=== PATIENT | female | born 1985 | race Two or more races ===

== ENCOUNTER 2024-07-27 14:05 | Observation (INO) | payer MEDICAID ==
[2024-07-27] MEDS ORDERED: PREN-96 PO (14:55)
[2024-07-27] MEDS ORDERED: METF-370 PO (14:56)
== END 2024-07-27 15:54 | disposition home or self-care (01) ==
LOC: LDRP 14:05 → UNDOADMOB 14:05 → LDRP 14:24
PROVIDERS: ADMIT Obstetrics & Gynecology; ATTEND Obstetrics & Gynecology
DX: O24.419 Gestational diabetes mellitus in pregnancy, unspecified control (principal); Z3A.33 33 weeks gestation of pregnancy
CPT/HCPCS: 59025; 76818; 81002; 82948; 82962; 94760; G0378

== ENCOUNTER 2024-07-30 10:46 | Observation (INO) | payer MEDICAID ==
[~2024-07-30 10:46] MED LIST: METF-370 PO; PREN-96 PO
== END 2024-07-30 13:08 | disposition home or self-care (01) ==
LOC: LDRP 10:46
PROVIDERS: ADMIT Obstetrics & Gynecology; ATTEND Obstetrics & Gynecology
DX: O24.419 Gestational diabetes mellitus in pregnancy, unspecified control (principal); Z3A.33 33 weeks gestation of pregnancy
CPT/HCPCS: 59025; 76818; 81002; 82948; 82962; 94760; G0378

== ENCOUNTER 2024-08-03 11:55 | Observation (INO) | payer MEDICAID ==
--- NOTE | 2024-08-03 12:42 | DVH ---
BIOPHYSICAL PROFILE HISTORY: GDMA2 Comparison Study: 07/30/2024 TECHNIQUE: Multiple real-time grayscale sonographic images through the gravid uterus of the fetus wi th duplex Doppler color flow and M-mode spectral analysis FINDINGS: BIOPHYSICAL PROFILE: breathing score: 2 movement score: 2 tone score: 2 Quantitative RUTH ANN score: 2 (RUTH ANN: 14.4 Cm.) Total score: 8 The cervix is not visualized Single live fetus in cephalic presentation. heart rate 149 beats per minute. Posterior placenta without previa or abruption IMPRESSION: Biophysical profile score: 8
--- NOTE | 2024-08-03 19:56 | DVHDS2 ---
Physician Discharge Progress N Final Diagnosis: testing for GDM, A2 Operations or Procedures: Operations or Procedures 39yo IUP@34.1wks, +FM, denies UCs/VB VSS UA wnl NST reactive BPP wnl FKC/PTL precautions reviewed Condition on Discharge: Stable Disposition: Home with Health Services Discharge Instructions: Diet: Consistent carbohydrate Activity: No Restrictions, As Tolerated Medications: see med list Follow Up Care: Specialist: f/u in 3 days Discharge Statement: "Patient was advised to return to the ER or call 911 if any headaches, dizziness, shortness of breath, chest pain, abdominal pain, bleeding, fevers, or worsening of medical condition. Patient was counseled about treatment plan, medications, possible side effects, patientverbalized understanding. All questions were answered to the best of my ability. This discharge took greater then 30 minutes in planning, reviewing documentation, counseling the patient, and discussing with other team members." KURT KEENAN CNM Aug 03, 2024 19:56
== END 2024-08-03 13:27 | disposition home or self-care (01) ==
LOC: LDRP 11:55
PROVIDERS: ADMIT Obstetrics & Gynecology; ATTEND Obstetrics & Gynecology
DX: O24.419 Gestational diabetes mellitus in pregnancy, unspecified control (principal); Z3A.34 34 weeks gestation of pregnancy
CPT/HCPCS: 76818; 82962; G0378; 59025; 81002; 82948; 94760

== ENCOUNTER 2024-08-06 08:57 | Observation (INO) | payer MEDICAID ==
--- NOTE | 2024-08-06 09:50 | DVH ---
BIOPHYSICAL PROFILE HISTORY: GDMA2 Comparison Study: 08/03/2024 TECHNIQUE: Multiple real-time grayscale sonographic images through the gravid uterus of the fetus wi th duplex Doppler color flow and M-mode spectral analysis FINDINGS: BIOPHYSICAL PROFILE: breathing score: 2 movement score: 2 tone score: 2 Quantitative RUTH ANN score: 2 (RUTH ANN: 11.7 Cm.) Total score: 8 The cervix is not visualized Single live fetus in cephalic presentation. heart rate 140 beats per minute. Posterior placenta without previa or abruption IMPRESSION: Biophysical profile score: 8
--- NOTE | 2024-08-06 16:56 | DVHDS2 ---
Physician Discharge Progress N Final Diagnosis: GDMA2 Operations or Procedures: Operations or Procedures NST/BPP/RUTH ANN Accucheck Commentary: Commentary Reassuring status Condition on Discharge: Stable Disposition: Home Discharge Instructions: Diet: Consistent carbohydrate Activity: No Restrictions, As Tolerated Follow Up/Referral: as scheduled 2x/week for NST/BPP Medications: N/A Follow Up Care: Discharge Statement: "Patient was advised to return to the ER or call 911 if any headaches, dizziness, shortness of breath, chest pain, abdominal pain, bleeding, fevers, or worsening of medical condition. Patient was counseled about treatment plan, medications, possible side effects, patientverbalized understanding. All questions were answered to the best of my ability. This discharge took greater then 30 minutes in planning, reviewing documen tation, counseling the patient, and discussing with other team members." ROSY GONZALEZ DO Aug 06, 2024 16:56
== END 2024-08-06 11:30 | disposition home or self-care (01) ==
LOC: LDRP 08:57
PROVIDERS: ADMIT Obstetrics & Gynecology; ATTEND Obstetrics & Gynecology
DX: O24.419 Gestational diabetes mellitus in pregnancy, unspecified control (principal); Z3A.34 34 weeks gestation of pregnancy
CPT/HCPCS: 59025; 76818; 81002; 82948; 82962; G0378

== ENCOUNTER 2024-08-09 11:32 | Observation (INO) | payer MEDICAID ==
--- NOTE | 2024-08-10 09:48 | DVH ---
BIOPHYSICAL PROFILE HISTORY: GDMA2 TECHNIQUE: Multiple transabdominal real-time grayscale sonographic images through the gravid uterus of the fetus with duplex Doppler color flow and M-mode spectral analysis FINDINGS: BIOPHYSICAL PROFILE: breathing score: 2 movement score: 2 tone score: 2 Quantitative RUTH ANN score: 2 (RUTH ANN: 13.9 Cm.) Total score: 8 The cervix not well visualized. Single live fetus in vertex presentation. heart rate 150 beats per minute. Posterior placenta without previa or abruption IMPRESSION: Biophysical profile score: 8/8
--- NOTE | 2024-08-10 20:24 | DVHDS2 ---
Physician Discharge Progress N Final Diagnosis: testing for GDM, A2 Operations or Procedures: Operations or Procedures 39yo IUP@35.1wks VSS UA wnl NST reactive (verified by 2 RNs) BPP WNL FKC/PTL precautions reviewed Condition on Discharge: Stable Disposition: Home Discharge Instructions: Diet: Consistent carbohydrate Activity: No Restrictions, As Tolerated Medications: see med list Follow Up Care: Specialist: f/u in 3 days Discharge Statement: "Patient was advised to return to the ER or call 911 if any headaches, dizziness, shortness of breath, chest pain, abdominal pain, bleeding, fevers, or worsening of medical condition. Patient was counseled about treatment plan, medications, possible side effects, patientverbalized understanding. All questions were answered to the best of my ability. This discharge took greater then 30 minutes in planning, reviewing d ocumentation, counseling the patient, and discussing with other team members." KURT KEENAN CNM Aug 10, 2024 20:23
== END 2024-08-10 10:53 | disposition home or self-care (01) ==
LOC: LDRP 08-10 09:03
PROVIDERS: ADMIT Obstetrics & Gynecology; ATTEND Obstetrics & Gynecology
DX: O09.523 Supervision of elderly multigravida, third trimester (principal); O24.419 Gestational diabetes mellitus in pregnancy, unspecified control; Z79.899 Other long term (current) drug therapy; Z98.890 Other specified postprocedural states; Z3A.35 35 weeks gestation of pregnancy
CPT/HCPCS: 59025; 76818; 81002; 82948; 82962; G0378

== ENCOUNTER 2024-08-13 10:55 | Observation (INO) | payer MEDICAID ==
--- NOTE | 2024-08-13 12:02 | DVH ---
Procedure: US BIOPHYSICAL PROFILE 08/13/2024 11:34 AM Indication:GDMA2. Comparison: US BIOPHYSICAL PROFILE on DOS: 08/10/24, US BIOPHYSICAL PROFILE on DOS: 08/06/24, US BIOPH YSICAL PROFILE on DOS: 08/03/24 Technique: Sonogram of gravid uterus utilizing grayscale and color techniques. FINDINGS: Single living intrauterine gestation. Presentation: Cephalic Placenta: Posterior heart rate: 137 bpm RUTH ANN: 11.3 cm Maternal cervix: Not visualized Biophysical Profile: breathing score: 2 movement score: 2 tone: 2 Quantitative RUTH ANN score: 2 Total score: 8/8 IMPRESSION: 1. Single living as above. 2. Biophysical profile score: 8/8.
--- NOTE | 2024-08-13 17:54 | DVHDS2 ---
Physician Discharge Progress N Final Diagnosis: GDMA2 Operations or Procedures: Operations or Procedures NST/BPP/RUTH ANN Accucheck ALL WNL Condition on Discharge: Stable Disposition: Home Discharge Instructions: Diet: Consistent carbohydrate Activity: No Restrictions, As Tolerated Follow Up/Referral: as scheduled Medications: N/A Follow Up Care: Discharge Statement: "Patient was advised to return to the ER or call 911 if any headaches, dizziness, shortness of breath, chest pain, abdominal pain, bleeding, fevers, or worsening of medical condition. Patient was counseled about treatment plan, medications, possible side effects, patientverbalized understanding. All questions were answered to the best of my ability. This discharge took greater then 30 minutes in planning, reviewing documentation, counseling the patient, and discussing with other team members." ROSY GONZALEZ DO Aug 13, 2024 17:54
== END 2024-08-13 12:22 | disposition home or self-care (01) ==
LOC: LDRP 10:55
PROVIDERS: ADMIT Obstetrics & Gynecology; ATTEND Obstetrics & Gynecology
DX: O24.419 Gestational diabetes mellitus in pregnancy, unspecified control (principal); Z3A.35 35 weeks gestation of pregnancy
CPT/HCPCS: 59025; 76818; 81002; 82948; 82962; 94760; G0378

== ENCOUNTER 2024-08-17 13:37 | Observation (INO) | payer MEDICAID ==
--- NOTE | 2024-08-17 14:19 | DVH ---
BIOPHYSICAL PROFILE HISTORY: GDMA2 TECHNIQUE: Multiple transabdominal real-time grayscale sonographic images through the gravid uterus of the fetus with duplex Doppler color flow and M-mode spectral analysis FINDINGS: BIOPHYSICAL PROFILE: breathing score: 2 movement score: 2 tone score: 2 Quantitative RUTH ANN score: 2 (RUTH ANN: 14.3 Cm.) Total score: 8 The cervix not well visualized. Single live fetus in vertex presentation. heart rate 154 beats per minute. Posterior placenta without previa or abruption IMPRESSION: Biophysical profile score: 8
--- NOTE | 2024-08-17 19:16 | DVHDS2 ---
Physician Discharge Progress N Final Diagnosis: testing for GDM, A2 Operations or Procedures: Operations or Procedures 39yo IUP@36.1wks VSS UA wnl NST reactive (verified by 2 RNs) BPP wnl FKC/PTL/PreE precautions reviewed. Condition on Discharge: Stable Disposition: Home Discharge Instructions: Diet: Consistent carbohydrate Activity: No Restrictions, As Tolerated Medications: see med list Follow Up Care: Specialist: f/u in 3 days Discharge Statement: "Patient was advised to return to the ER or call 911 if any headaches, dizziness, shortness of breath, chest pain, abdominal pain, bleeding, fevers, or worsening of medical condition. Patient was counseled about treatment plan, medications, possible side effects, patientverbalized understanding. All questions were answered to the best of my ability. This discharge took greater then 30 minutes in planning, reviewing documentation, counseling the patient, and discussing with other team members." KURT KEENAN CNM Aug 17, 2024 19:16
== END 2024-08-17 15:01 | disposition home or self-care (01) ==
LOC: LDRP 13:37
PROVIDERS: ADMIT Obstetrics & Gynecology; ATTEND Obstetrics & Gynecology
DX: O09.523 Supervision of elderly multigravida, third trimester (principal); O24.419 Gestational diabetes mellitus in pregnancy, unspecified control; Z3A.36 36 weeks gestation of pregnancy; Z79.899 Other long term (current) drug therapy; Z98.890 Other specified postprocedural states
CPT/HCPCS: 59025; 76818; 81002; 82962; 94760; G0378

== ENCOUNTER 2024-08-20 10:52 | Observation (INO) | payer MEDICAID ==
--- NOTE | 2024-08-20 11:47 | DVH ---
BIOPHYSICAL PROFILE HISTORY: GDMA2 Comparison Study: None TECHNIQUE: Multiple real-time grayscale sonographic images through the gravid uterus of the fetus wi th duplex Doppler color flow and M-mode spectral analysis FINDINGS: BIOPHYSICAL PROFILE: breathing score: 2 movement score: 2 tone score: 2 Quantitative RUTH ANN score: 2 (RUTH ANN: 13.4 Cm.) Total score: 8 The cervix is not visualized Single live fetus in cephalic presentation. heart rate 167 beats per minute. Posterior placenta without previa or abruption IMPRESSION: Biophysical profile score: 8
--- NOTE | 2024-08-20 17:08 | DVHDS2 ---
Physician Discharge Progress N Final Diagnosis: GDM Operations or Procedures: Operations or Procedures NST/BPP/RUTH ANN Accucheck ALL the above WNL Condition on Discharge: Stable Disposition: Home Discharge Instructions: Diet: Regular Activity: No Restrictions, As Tolerated Follow Up/Referral: As scheduled Medications: N/A Follow Up Care: Discharge Statement: "Patient was advised to return to the ER or call 911 if any headaches, dizziness, shortness of breath, chest pain, abdominal pain, bleeding, fevers, or worsening of medical condition. Patient was counseled about treatment plan, medications, possible side effects, patientverbalized understanding. All questions were answered to the best of my ability. This discharge took greater then 30 minutes in planning, reviewing documentation, counseling the patient, and discussing with other team members." ROSY GONZALEZ DO Aug 20, 2024 17:08
== END 2024-08-20 12:45 | disposition home or self-care (01) ==
LOC: LDRP 10:52 → UNDOADMOB 10:52 → LDRP 11:05 → UNDODISOB 12:45
PROVIDERS: ADMIT Obstetrics & Gynecology; ATTEND Obstetrics & Gynecology
DX: O24.419 Gestational diabetes mellitus in pregnancy, unspecified control (principal); Z3A.36 36 weeks gestation of pregnancy
CPT/HCPCS: 59025; 76818; 81002; 82948; 94760; G0378

== ENCOUNTER 2024-08-24 12:59 | Observation (INO) | payer MEDICAID ==
--- NOTE | 2024-08-24 15:49 | DVH ---
BIOPHYSICAL PROFILE HISTORY: GDMA2 TECHNIQUE: Multiple transabdominal real-time grayscale sonographic images through the gravid uterus of the fetus with duplex Doppler color flow and M-mode spectral analysis FINDINGS: BIOPHYSICAL PROFILE: breathing score: 2 movement score: 2 tone score: 2 Quantitative RUTH ANN score: 2 (RUTH ANN: 15.4 Cm.) Total score: 8/8 Single live fetus in cephalic presentation. heart rate 140 beats per minute. Posterior placenta without previa or abruption IMPRESSION: 1. Biophysical profile score: 8/8 HS:Y
--- NOTE | 2024-08-24 22:04 | DVHDS2 ---
Physician Discharge Progress N Final Diagnosis: testing for GDM, A2 Operations or Procedures: Operations or Procedures 39yo IUP@37.1wks VSS UA wnl NST reactive (verified by 2 RNs) BPP wnl FKC/labor precautions reviewed. Condition on Discharge: Stable Disposition: Home Discharge Instructions: Diet: Consistent carbohydrate Activity: No Restrictions, As Tolerated Medications: see med list Follow Up Care: Specialist: f/u twice weekly Discharge Statement: "Patient was advised to return to the ER or call 911 if any headaches, dizziness, shortness of breath, chest pain, abdominal pain, bleeding, fevers, or worsening of medical condition. Patient was counseled about treatment plan, medications, possible side effects, patientverbalized understanding. All questions were answered to the best of my ability. This discharge took greater then 30 minutes in planning, reviewing documentation, counseling the patient, and discussing with other team members." KURT KEENAN CNM Aug 24, 2024 22:04
== END 2024-08-24 16:30 | disposition home or self-care (01) ==
LOC: LDRP 15:00
PROVIDERS: ADMIT Obstetrics & Gynecology; ATTEND Obstetrics & Gynecology
CPT/HCPCS: 59025 ×2; 76818 ×2; 81002 ×2; 82948 ×2; 82962 ×2; 94760 ×2; G0378

== ENCOUNTER 2024-08-28 04:24 | Observation (INO) | payer MEDICAID ==
--- NOTE | 2024-08-28 10:41 | DVH ---
CLINICAL HISTORY: Gestational diabetes. COMPARISON: US BIOPHYSICAL PROFILE on DOS: 08/24/24, US BIOPHYSICAL PROFILE on DOS: 08/20/24, US BIOP HYSICAL PROFILE on DOS: 08/17/24 TECHNIQUE: biophysical profile was performed. Transabdominal sonographic images of the fetus we re obtained. FINDINGS: The fetus is in cephalic position. heart rate measures 161 BPM. Amniotic fluid index measures 14.6 cm. The placenta is posterior in position. BPP profile is an overall score of 8/8, with 2/2 points for breathing, with at least one episode of breathing over a 30 second duration during a 30 minute observation, 2/2 points for m ovements, with 3 or more discrete body or limb movements, 2/2 points for tone, with one or more episodes of extremity extension with return to flexion, or opening and closing of hand, and 2/ 2 points for amniotic fluid, with at least 1 pocket of amniotic fluid that measures 2 cm in 2 perpend icular planes. IMPRESSION: BPP score of 8/8.
--- NOTE | 2024-08-28 18:59 | DVHDS2 ---
Physician Discharge Progress N Final Diagnosis: gdm,ama Operations or Procedures: Operations or Procedures nst,sono Condition on Discharge: Good Disposition: Home Discharge Instructions: Diet: Consistent carbohydrate Activity: No Restrictions, As Tolerated Medications: na Follow Up Care: Specialist: 2d Discharge Statement: "Patient was advised to return to the ER or call 911 if any headaches, dizziness, shortness of breath, chest pain, abdominal pain, bleeding, fevers, or worsening of medical condition. Patient was counseled about treatment plan, medications, possible side effects, patientverbalized understanding. All questions were answered to the best of my ability. This discharge took greater then 30 minutes in planning, reviewing documentation , counseling the patient, and discussing with other team members." MURIEL LILLY DO Aug 28, 2024 18:59
== END 2024-08-28 10:58 | disposition home or self-care (01) ==
LOC: LDRP 09:54
PROVIDERS: ADMIT Obstetrics & Gynecology; ATTEND Obstetrics & Gynecology
DX: O09.513 Supervision of elderly primigravida, third trimester (principal); O24.419 Gestational diabetes mellitus in pregnancy, unspecified control; Z3A.37 37 weeks gestation of pregnancy; Z79.899 Other long term (current) drug therapy; Z98.890 Other specified postprocedural states
CPT/HCPCS: 59025; 76818; 81002; 82948; 82962; G0378

== ENCOUNTER 2024-09-01 10:52 | Observation (INO) | payer MEDICAID ==
--- NOTE | 2024-09-01 11:48 | DVH ---
CLINICAL HISTORY: Gestational diabetes. COMPARISON: US BIOPHYSICAL PROFILE on DOS: 08/28/24, US BIOPHYSICAL PROFILE on DOS: 08/24/24, US BIOP HYSICAL PROFILE on DOS: 08/20/24 TECHNIQUE: biophysical profile was performed. Transabdominal sonographic images of the fetus we re obtained. FINDINGS: The fetus is in cephalic position. heart rate measures 144 BPM. Amniotic fluid index measures 16.2 cm. The placenta is posterior in position. BPP profile is an overall score of 8/8, with 2/2 points for breathing, with at least one episode of breathing over a 30 second duration during a 30 minute observation, 2/2 points for m ovements, with 3 or more discrete body or limb movements, 2/2 points for tone, with one or more episodes of extremity extension with return to flexion, or opening and closing of hand, and 2/ 2 points for amniotic fluid, with at least 1 pocket of amniotic fluid that measures 2 cm in 2 perpend icular planes. IMPRESSION: BPP score of 8/8.
--- NOTE | 2024-09-01 12:34 | DVHDS2 ---
Physician Discharge Progress N Final Diagnosis: gdm Operations or Procedures: Operations or Procedures nst,sono Condition on Discharge: Good Disposition: Home Discharge Instructions: Diet: Consistent carbohydrate Activity: No Restrictions, As Tolerated Medications: na Follow Up Care: Specialist: 4d for induction Discharge Statement: "Patient was advised to return to the ER or call 911 if any headaches, dizziness, shortness of breath, chest pain, abdominal pain, bleeding, fevers, or worsening of medical condition. Patient was counseled about treatment plan, medications, possible side effects, patientverbalized understanding. All questions were answered to the best of my ability. This discharge took greater then 30 minutes in planning, reviewing do cumentation, counseling the patient, and discussing with other team members." MURIEL LILLY DO Sep 01, 2024 12:34
== END 2024-09-01 13:07 | disposition home or self-care (01) ==
LOC: UNDOADMOB 10:52 → LDRP 10:52 → UNDODISOB 13:07
PROVIDERS: ADMIT Obstetrics & Gynecology; ATTEND Obstetrics & Gynecology
DX: O24.419 Gestational diabetes mellitus in pregnancy, unspecified control (principal); Z79.899 Other long term (current) drug therapy; Z98.890 Other specified postprocedural states; Z3A.38 38 weeks gestation of pregnancy
CPT/HCPCS: 59025; 76818; 81002; 82948; 82962; 94760; G0378

== ENCOUNTER 2024-09-05 05:21 | Inpatient (IN) | payer MEDICAID ==
[~2024-09-05] VITALS: Ht 162.6 cm; Wt 104.3 kg
[2024-09-05] MEDS ORDERED: BUTORPHANOL TARTRATE 2 MG/1 ML VIAL IV PRN ×2 (07:00)
[2024-09-05] MEDS ORDERED: LIDOCAINE 2%HCL (LOCAL ANESTH.) INJ 20ML MDV IJ PRN (07:00)
[2024-09-05] MEDS: miSOPROStol 50 MCG per PRE-CUT 1/2 TAB PO PRN (07:31)
[2024-09-05] MEDS: LACTATED RINGER'S 1,000 ML IV SCH (07:36)
[2024-09-05 07:42] LABS: Basophils # (auto) 0 10 ^3/uL (0-0.2); Basophils % (auto) 0.5 % (0.0-2.0); Eosinophils # (auto) 0.1 10 ^3/uL (0-0.8); Eosinophils % (auto) 1.3 % (0.0-7.0); Lymphocytes # (auto) 1.6 10 ^3/uL (0.4-5.4); Lymphocytes % (auto) 19.2 % (10.0-50.0); Mean Corpuscular Hemoglobin 28.3 pg (28.0-32.0); Mean Corpuscular Hgb Conc. 34.3 g/dL (32.0-36.0); Mean Corpuscular Volume 82.6 fL (80.0-100.0); Monocytes # (auto) 0.7 10 ^3/uL (0-1.3); Monocytes % (auto) 7.8 % (0.0-12.0); Neutrophils # (auto) 5.9 10 ^3/uL (1.6-8.6); Neutrophils % (auto) 71.2 % (37.0-80.0); Platelet Count (auto) 249 10^3/uL (140-450); Red Blood Cells 4.24 10^6/uL (4.0-5.20); White Blood Cell 8.3 10^3/uL (4.4-10.8)
--- NOTE | 2024-09-05 07:51 | DVHHP2 ---
OB CC & HPI Date Date of Admission: Sep 05, 2024 Patient Identification: : 6 Para: 3 EDC: Sep 13, 2024 EGA: 38wks Chief Complaints: Reason for admission: induction of labor Indication for : other (gdm) Admission Nurse Assessment Rev: No History of Present Complaints pt is admitted for io;l due to gdma2,no rom or vag bleeding Past Medical History Cardiac: No pertinent Hx Pulmonary: No pertinent Hx Central Nervous System: No pertinent Hx GI: No pertinent Hx Hemotology/Oncology: No pertinent Hx Hepatobiliary: No pertinent Hx Psychiatric: No pertinent Hx Musculoskeletal: No pertinent Hx Rheumotologic: No pertinent Hx Infectious Disease: No peritnent Hx ENT: No pertinent Hx Renal/: No pertinent Hx Endocrine: No pertinent Hx Dermatology: No pertinent Hx Past Surgical History: No pertinent Hx OB History OB History Care: Good Care Ultrasounds: Normal mid trimester US Obstetrical Complications: Gestational Diabetes Medical Complications: None Allergies: Coded Allergies: NO KNOWN ALLERGIES (Unverified , 09/05/24) Home Meds Reported Medications Metformin Hydrochloride (Metformin Hcl) 500 Mg Tab, 1 TAB PO HS, #60 TAB 3 Refills 07/27/24 Vit W/ Ferrous Fumara ( One Daily) Daily Tab, 1 TAB PO DAILY, #90 TAB 3 Refills 07/27/24 Current Medications Current Medications Medications (Trade) Dose Ordered Sig/Cecy Route PRN Reason Start Time Stop Time Status Last Admin Lactated Ringer's 1,000 ml @ 125 mls/hr Q8H IV 09/05/24 07:00 09/05/24 07:36 Witrenate Gerda (Tucks) 1 pad PRN PRN TOP PERINEAL AREA DISCOMFORT 09/05/24 07:00 Sodium Lauryl Sulfate (Phisoderm) 240 ml PRN PRN TOP PERINEAL AREA DISCOMFORT 09/05/24 07:00 Benzocaine (Dermoplast) 1 applic PRN PRN TOP PERINEAL AREA DISCOMFORT 09/05/24 07:00 Butorphanol Tartrate (Stadol Injection) 1 mg Q4HPRN PRN IV MODERATE PAIN (4-6 PAIN SCALE) 09/05/24 07:00 Butorphanol Tartrate (Stadol Injection) 2 mg Q4HPRN PRN IV SEVERE PAIN (7-10 PAIN SCALE) 09/05/24 07:00 Misoprostol (Cytotec) 50 mcg Q4HPRN PRN PO CERVICAL RIPENING 09/05/24 07:00 09/05/24 07:31 Lidocaine HCl (Xylocaine) 20 ml ONCE PRN IJ PERINEAL AREA DISCOMFORT 09/05/24 07:00 Family & Social History Family/Social History Blood Type: Unknown Rubella: unknown RPR/VDRL: Negative GBS Status: Negative HBsAG: Negative Review of Systems Constitutional: No symptom reported Ears, Nose, & Throat: No symptom reported Eyes: No symptom reported Pulmonary/Respiratory: No symptom reported Cardiovascular: No symptom reported Gastrointestinal: No symptom reported Genitourinary: No symptom reported Musculoskeletal: No symptom reported Skin: No symptom reported Psychiatric: No symptom reported Endocrine: No symptom reported Hemotologic/Lymphatic: No symptom reported OB Admission Exam Physical Exam HEENT: TMs Normal, Fontanelles Normal, Nasal Mucosa Normal, Eyes non-injected, Oropharynx Normal, PERRLA, Moist Membranes, EOMI Heart: Rhythm Normal Lungs: Clear Abdomen: Non tender Extremities: Normal Reflexes: Normal Cervical Dilatation: 1cm Effacement: 50% Station: -3 Membranes: Intact Heart Rate: 130's Accelerations: Accelerations Present Decelerations: No Decelerations Short Term Variability: Present Drupal Programmer Variability: Average (6-25) Contractions on Admission: None OB Plan Plan Admitting Diagnosis: Induction of labor for gdma2 morbid obesity Plan: Expectant Management, Induction Other Plan: informed consent obtained MURIEL LILLY DO Sep 05, 2024 07:51
[2024-09-05 07:55] LABS: INR 0.94 (0.9-1.15)
[2024-09-05 07:57] LABS: Alanine Aminotransferase 16 U/L (7-40); Albumin 3.6 g/dL (3.2-4.8); Anion Gap 8 (5-15); BUN/Creatinine Ratio 17.1 (10.0-20.0); Bilirubin, Total 0.3 mg/dL (0.2-1.0); Calcium 9.4 mg/dL (8.7-10.4); Carbon Dioxide 24 mmol/L (20-31); Chloride 105 mmol/L (98-107); Glucose 97 mg/dL (74-106); Potassium 3.7 mmol/L (3.5-5.1); Sodium 137 mmol/L (136-145); Total Protein 6.1 g/dL (5.7-8.2)
[2024-09-05 08:04] LABS: Alkaline Phosphatase 168 U/L (46-116); Aspartate Aminotransferase 11 U/L (13-40); Blood Urea Nitrogen 7 mg/dL (9-23)
[2024-09-05 08:58] LABS: Urine Bacteria None Seen /hpf (None Seen)
[2024-09-05 09:18] LABS: Urine Blood Negative /uL (Negative); Urine Clarity Clear (Clear); Urine Color Colorless (Yellow); Urine Protein, UAD Negative (Negative); Urine Specific Gravity 1.007 (1.001-1.035); Urine Urobilinogen Normal (Negative); Urine WBC 1 /hpf (0 - 5)
[2024-09-05 09:20] LABS: Amphetamine Screen, Urine Neg (NEGATIVE); Barbiturate Scree,Urine Neg (NEGATIVE); Benzodiazephine Screen, Urine Neg (NEGATIVE); Cannabinoid Screen, Urine Neg (NEGATIVE); Cocaine Screen, Urine Neg (NEGATIVE); Opiate Scree,Urine Neg (NEGATIVE); Phencyclidine Screen, Urine Neg (NEGATIVE)
[2024-09-05] MEDS: ACCU-CHEK COMFORT CURVE STRIP VI SCH (11:05)
--- NOTE | 2024-09-05 11:45 | DVHPN2 ---
Chief Complaints Patient reports: No new complaints Nursing reports: No new complaints Objective Medications Current Medications Medications (Trade) Dose Ordered Sig/Cecy Route PRN Reason Start Time Stop Time Status Last Admin Benzocaine (Dermoplast) 1 applic PRN PRN TOP PERINEAL AREA DISCOMFORT 09/05/24 07:00 Butorphanol Tartrate (Stadol Injection) 1 mg Q4HPRN PRN IV MODERATE PAIN (4-6 PAIN SCALE) 09/05/24 07:00 Butorphanol Tartrate (Stadol Injection) 2 mg Q4HPRN PRN IV SEVERE PAIN (7-10 PAIN SCALE) 09/05/24 07:00 Diagnostic Test (Pha) (Accu-Chek Comfort Curve T) 1 strip Q4HR 09/05/24 11:00 09/05/24 11:05 Lactated Ringer's 1,000 ml @ 125 mls/hr Q8H IV 09/05/24 07:00 09/05/24 07:36 Lidocaine HCl (Xylocaine) 20 ml ONCE PRN IJ PERINEAL AREA DISCOMFORT 09/05/24 07:00 Misoprostol (Cytotec) 50 mcg Q4HPRN PRN PO CERVICAL RIPENING 09/05/24 07:00 09/05/24 11:30 Sodium Lauryl Sulfate (Phisoderm) 240 ml PRN PRN TOP PERINEAL AREA DISCOMFORT 09/05/24 07:00 Witrenate Ferrerel (Bryanckcristel) 1 pad PRN PRN TOP PERINEAL AREA DISCOMFORT 09/05/24 07:00 Others ve-2cm/50/-2 Studies Laboratory Tests 09/05/24 07:17 Test 09/05/24 07:17 Range/Units Serum Glucose 97 74-106 mg/dL Ass/Plan Assessment iol for gdma2 Plan rec 2nd cytotec VIJAYAMURIEL DO Sep 05, 2024 11:45
[2024-09-05] MEDS: D5W/LACTATED RINGERS 1,000 ML IV ONE (13:10)
[2024-09-05] MEDS: ceFAZolin 1GM/50ML 50 ML IV SCH (13:44)
[2024-09-05] MEDS: ePHEDrine SULFATE 50 MG/ML AMP IV ONE (14:00)
[2024-09-05] MEDS: NALOXONE HCL 0.4 MG/ML VIAL IV ONE (14:00)
[2024-09-05] MEDS: fentaNYL CITRATE 100 MCG/2 ML VL IV ONE (15:53)
[2024-09-05] MEDS: ROPIVACAINE HCL 200 ML ONE (15:54)
--- NOTE | 2024-09-05 16:05 | DVHPN2 ---
Chief Complaints Patient reports: No new complaints Nursing reports: No new complaints Objective Medications Current Medications Medications (Trade) Dose Ordered Sig/Cecy Route PRN Reason Start Time Stop Time Status Last Admin Benzocaine (Dermoplast) 1 applic PRN PRN TOP PERINEAL AREA DISCOMFORT 09/05/24 07:00 Butorphanol Tartrate (Stadol Injection) 1 mg Q4HPRN PRN IV MODERATE PAIN (4-6 PAIN SCALE) 09/05/24 07:00 Butorphanol Tartrate (Stadol Injection) 2 mg Q4HPRN PRN IV SEVERE PAIN (7-10 PAIN SCALE) 09/05/24 07:00 Cefazolin Sodium 50 ml @ 100 mls/hr Q8HR IV 09/05/24 14:00 09/05/24 13:44 Diagnostic Test (Pha) (Accu-Chek Comfort Curve T) 1 strip Q4HR 09/05/24 11:00 09/05/24 14:41 Lidocaine HCl (Xylocaine) 20 ml ONCE PRN IJ PERINEAL AREA DISCOMFORT 09/05/24 07:00 Misoprostol (Cytotec) 50 mcg Q4HPRN PRN PO CERVICAL RIPENING 09/05/24 07:00 09/05/24 11:30 Sodium Lauryl Sulfate (Phisoderm) 240 ml PRN PRN TOP PERINEAL AREA DISCOMFORT 09/05/24 07:00 Witrenate Ferrerel (Naif) 1 pad PRN PRN TOP PERINEAL AREA DISCOMFORT 09/05/24 07:00 Others ve-5cm/75/-2 Studies Laboratory Tests 09/05/24 07:17 Test 09/05/24 07:17 Range/Units Serum Glucose 97 74-106 mg/dL Ass/Plan Assessment iol for gdma2 Plan arom done ,iupc and ifm place d start pitocin rec epidural pagan that was place din cx came MURIEL Crouch DO Sep 05, 2024 16:04
[2024-09-05] MEDS: DERMOPLAST 60ML BOTTLE TOP PRN (16:41)
[2024-09-05] MEDS: PHISODERM TOP SOLN 240ML BTL TOP PRN (16:41)
[2024-09-05] MEDS: WITCH HAZEL-GLYCERIN PAD TOP PRN (16:41)
[2024-09-05] MEDS: LACT. RINGERS/OXYTOCIN 20UNITS 1,000 ML IV SCH (17:00)
--- NOTE | 2024-09-05 19:10 | DVHPN2 ---
[facility] Labor Progress Note Date and Time Seen Date Seen: Sep 05, 2024 Time Seen: 18:39 Subjective Patient reports: No new complaints Monitoring Method Monitoring Method: External Heart Rate Heart Rate Baseline: 150 Heart Rate Variability: Moderate Presence of FHR Accelerations: No Presence of FHR Decelerations: Yes Heart Rate Type of Decel: Early Deceleraions Are all 5 Components of the FH: Yes Contractions Contractions Frequency: Other (q2-3) Duration of Contraction: 70 Contractions Intensity: Moderate Contractions Resting Tone: Relaxed Membranes Membranes: Ruptured Amniotic Fluid Color: Clear Vaginal Exam Vaginal Exam Dilation: 8 Vaginal Exam Effacement: 100 Vaginal Exam Station: -2 Vaginal Exam Show: Moderate Medications Medications - Pitocin: Yes Medication - Epidural: Yes Lab Results Lab Results Vital Signs Date Time Temp Pulse Resp B/P (MAP) Pulse Ox O2 Delivery O2 Flow Rate FiO2 09/06/24 03:00 98.6 98 16 115/61 (79) 97 98.6 09/05/24 23:00 Room Air I & O 09/06/24 07:00 Output Total 1450 ml Balance -1450 ml Output Urine Total 1450 ml Current Medications Medications (Trade) Dose Ordered Sig/Cecy Start Time Stop Time Status Last Admin Dose Admin Lactated Ringer's 1,000 ml @ 125 mls/hr Q8H 09/05/24 07:00 09/05/24 13:00 DC 09/05/24 07:36 125 MLS/HR Joshua Lorenz (Tucks) 1 pad PRN PRN 09/05/24 07:00 09/05/24 16:41 1 PAD Sodium Lauryl Sulfate (Phisoderm) 240 ml PRN PRN 09/05/24 07:00 09/05/24 16:41 240 ML Benzocaine (Dermoplast) 1 applic PRN PRN 09/05/24 07:00 09/05/24 16:41 1 APPLIC Butorphanol Tartrate (Stadol Injection) 1 mg Q4HPRN PRN 09/05/24 07:00 Butorphanol Tartrate (Stadol Injection) 2 mg Q4HPRN PRN 09/05/24 07:00 Misoprostol (Cytotec) 50 mcg Q4HPRN PRN 09/05/24 07:00 09/05/24 11:30 50 MCG Lidocaine HCl (Xylocaine) 20 ml ONCE PRN 09/05/24 07:00 Oxytocin 500 ml @ 999 mls/hr Q31M ONCE 09/05/24 07:00 09/05/24 07:30 DC 09/06/24 05:59 999 MLS/HR Oxytocin 500 ml @ 125 mls/hr Q4H ONCE 09/05/24 07:30 09/05/24 11:29 DC 09/06/24 06:00 125 MLS/HR Diagnostic Test (Pha) (Accu-Chek Comfort Curve T) 1 strip Q4HR 09/05/24 11:00 09/05/24 14:41 1 STRIP Cefazolin Sodium 50 ml @ 100 mls/hr Q8HR 09/05/24 14:00 09/06/24 01:29 100 MLS/HR Dextrose/Lactated Ringer's 1,000 ml @ 125 mls/hr Q8H ONCE 09/05/24 13:00 09/05/24 20:59 DC 09/05/24 13:10 125 MLS/HR Naloxone HCl (Narcan) 0.2 mg PRN ONCE 09/05/24 14:00 09/05/24 14:45 DC Ephedrine Sulfate (ePHEDrine SULFATE) 10 mg PRN ONCE 09/05/24 14:00 09/05/24 14:45 DC Fentanyl Citrate 200 mcg ONCE ONCE 09/05/24 14:00 09/05/24 14:45 DC 09/05/24 15:53 200 MCG Oxytocin 1,000 ml @ 6 ml/hr Q24H 09/05/24 16:45 09/05/24 17:00 6 ML/HR Laboratory Tests Test 09/05/24 19:02 09/05/24 08:00 09/05/24 07:17 Range/Units POC Glucose 97 70-106 mg/dl Urine Color Colorless Yellow Urine Clarity Clear Clear Urine pH 6.0 5.0-9.0 Urine Specific [place] 1.007 1.001-1.035 Urine Protein Negative Negative Urine Ketones Negative Negative Urine Blood Negative Negative /uL Urine Nitrite Negative Negative Urine Bilirubin Negative Negative Urine Urobilinogen Normal Negative mg/dL Urine Leukocyte Esterase Negative Negative /uL Urine RBC 1 0 - 4 /hpf Urine WBC 1 0 - 5 /hpf Urine Squamous Epithelial Cells Few <5 /hpf Urine Bacteria None seen None Seen /hpf Urine Glucose Normal Normal mg/dL Urine Opiates Screen Neg NEGATIVE Urine Fentanyl Screen Neg NEGATIVE Urine Barbiturates Screen Neg NEGATIVE Urine Phencyclidine Screen Neg NEGATIVE Urine Amphetamines Screen Neg NEGATIVE Urine Benzodiazepines Screen Neg NEGATIVE Urine Cocaine Screen Neg NEGATIVE Urine Cannabinoids Screen Neg NEGATIVE White Blood Count 8.3 4.4-10.8 10^3/uL Red Blood Count 4.24 4.0-5.20 10^6/uL Hemoglobin 12.0 L 12.2-16.2 g/dL Hematocrit 35.0 L 36.0-46.0 % Mean Corpuscular Volume 82.6 80.0-100.0 fL Mean Corpuscular Hemoglobin 28.3 28.0-32.0 pg Mean Corpuscular Hemoglobin Concent 34.3 32.0-36.0 g/dL Red Cell Distribution Width 16.0 H 11.8-14.3 % Platelet Count 249 140-450 10^3/uL Mean Platelet Volume 7.8 6.9-10.8 fL Neutrophils (%) (Auto) 71.2 37.0-80.0 % Lymphocytes (%) (Auto) 19.2 10.0-50.0 % Monocytes (%) (Auto) 7.8 0.0-12.0 % Eosinophils (%) (Auto) 1.3 0.0-7.0 % Basophils (%) (Auto) 0.5 0.0-2.0 % Neutrophils # (Auto) 5.9 1.6-8.6 10 ^3/uL Lymphocytes # (Auto) 1.6 0.4-5.4 10 ^3/uL Monocytes # (Auto) 0.7 0-1.3 10 ^3/uL Eosinophils # (Auto) 0.1 0-0.8 10 ^3/uL Basophils # (Auto) 0 0-0.2 10 ^3/uL Nucleated Red Blood Cells 0.0 % Prothrombin Time 10.0 9.3-11.8 sec Prothrombin Time INR 0.94 0.9-1.15 Activated Partial Thromboplast Time 27.0 24.5-34.5 SEC Sodium Level 137 136-145 mmol/L Potassium Level 3.7 3.5-5.1 mmol/L Chloride Level 105 98-107 mmol/L Carbon Dioxide Level 24 20-31 mmol/L Anion Gap 8 5-15 Blood Urea Nitrogen 7 L 9-23 mg/dL Creatinine 0.41 L 0.550-1.02 mg/dL Glomerular Filtration Rate Calc 128 >90 mL/min BUN/Creatinine Ratio 17.1 10.0-20.0 Serum Glucose 97 74-106 mg/dL Calcium Level 9.4 8.7-10.4 mg/dL Total Bilirubin 0.3 0.2-1.0 mg/dL Aspartate Amino Transferase (AST) 11 L 13-40 U/L Alanine Aminotransferase (ALT) 16 7-40 U/L Alkaline Phosphatase 168 H 46-116 U/L Total Protein 6.1 5.7-8.2 g/dL Albumin 3.6 3.2-4.8 g/dL Rapid Plasma Reagin Pending Treponema pallidum Ab (TP-PA) Pending Hepatitis C Antibody Negative Negative Assessment Assessment IUP at GDMA2 Category 1 FHR Tracing Active Labor Plan Plan FSE replaced Frequent position change to facilitate descent Supportive care Anticipate Plan discussed with: Patient, Spouse DOC LEWIS CNM Sep 05, 2024 19:10
--- NOTE | 2024-09-05 22:52 | LDN2 ---
Labor and Delivery Note Date 09/05/24 Age 39 6 Para 3 AB 2 EDC 09/13/24 EGA 38w 6d Diagnosis IUP at 38w 6d AMA GDMA2 Obesity 2nd stage of labor Vaginal Delivery: VTX Vacuum Assisted: No Placenta: Spontaneous Sex: Male Weight 8Lbs 15oz Apgars 8 and 9 at one and five minutes of life respectively Nuchal Cord Transected: No Amniotic Fluid: Clear Anesthesia Labor epidural Episiotomy: No Extension: Yes Repaired with 2-0 Vicryl EBL 100mL Labs Blood Bank 09/05/24 07:17: Blood Type A POSITIVE Complications None Conditions Mother and baby in stable condition Director Of Medical Services Mayra Comments/Significant Med Joanne On 09/05/24 at 2012,39yo, now delivered a viable Male by w/ score 8 and 9 at one & five minutes of life respectively. ADRIANA position Infant placed skin to skin on pts chest. Cord clamped and cut after pulsation ceased. Cord blood sent. Intact 3-vessel cord placenta delivered spontaneously, Karena. Pitocin IV bolus started. Placenta sent to pathology. Patient had labor epidural anesthesia. First degree perineal laceration noted and was repaired with 2-0 Vicryl suture. Cervix/vagina inspected via SSE. Cervix intact. Rectal mucosa and sphincter intact. Rectal exam performed, WNL, not involved. Fundus at U, firm, midline, and light lochia. QBL 100ml. VSS. Count correct x2. Patient to care and baby to couplet care, both stable. DOC LEWIS CNM Sep 05, 2024 22:52
[2024-09-05 23:45] VITALS: BP 97/56; PULSE 98; RESP 18; TEMP 98.2; O2SAT 98
[2024-09-06 03:00] VITALS: BP 115/61; PULSE 98; RESP 16; TEMP 98.6; O2SAT 97
[2024-09-06] MEDS: LACT. RINGERS/OXYTOCIN 20UNITS 500 ML IV ONE ×2 (05:59→06:00)
[2024-09-06 07:00] VITALS: BP 101/55; PULSE 90; RESP 16; TEMP 98.5; O2SAT 100
--- NOTE | 2024-09-06 08:02 | DVHPN2 ---
Progress Note Date Seen: Sep 06, 2024 Subjective S: Lochia minimal. Regular diet well tolerated. Ambulating and voiding well w/o feeling dizzy or lightheaded. Perineal pain relieved with topical analgesics and cramps with oral analgesics. Passing flatus but no BM yet. Infant transferred to higher level of care vital signs Vital Sign Date Time Temp Pulse Resp B/P (MAP) Pulse Ox O2 Delivery O2 Flow Rate FiO2 09/06/24 03:00 98.6 98 16 115/61 (79) 97 98.6 09/05/24 23:00 Room Air Total Intake and Output 09/05/24 09/05/24 09/06/24 15:00 23:00 07:00 Output Total 600 ml 850 ml Balance -600 ml -850 ml medications Current Medications Medications Dose Ordered Sig/Cecy Route Start Time Stop Time Status Last Admin Dose Admin Joshua Lorenz 1 pad PRN PRN TOP 09/05/24 07:00 09/05/24 16:41 1 PAD Sodium Lauryl Sulfate 240 ml PRN PRN TOP 09/05/24 07:00 09/05/24 16:41 240 ML Benzocaine 1 applic PRN PRN TOP 09/05/24 07:00 09/05/24 16:41 1 APPLIC Butorphanol Tartrate 1 mg Q4HPRN PRN IV 09/05/24 07:00 Butorphanol Tartrate 2 mg Q4HPRN PRN IV 09/05/24 07:00 Misoprostol 50 mcg Q4HPRN PRN PO 09/05/24 07:00 09/05/24 11:30 50 MCG Lidocaine HCl 20 ml ONCE PRN IJ 09/05/24 07:00 Diagnostic Test (Pha) 1 strip Q4HR 09/05/24 11:00 09/05/24 14:41 1 STRIP Cefazolin Sodium 50 ml @ 100 mls/hr Q8HR IV 09/05/24 14:00 09/06/24 01:29 100 MLS/HR Oxytocin 1,000 ml @ 6 ml/hr Q24H IV 09/05/24 16:45 09/05/24 17:00 6 ML/HR laboratory and microbiology Laboratory Tests 09/05/24 07:17 Test 09/05/24 07:17 Range/Units Serum Glucose 97 74-106 mg/dL Objective O: A&O x3 NAD. Afebrile, VSS Chest: heart and lung sounds normal. Breasts: Nipples intact w/o cracks or soreness Abdomen: normal BS, soft, non-tender, no rebound or guarding, fundus firm @ U- 1, Perineum:- no edema, or erythema, Incision / laceration site with sutures intact, edges in good approximation. Extremities: no edema or tenderness Lochia - minimal Assessment/Plan 39yo now ppd#1_ s/p doing well. Blood Type: A Rh: Positive Breast feeding Rubella: Immune Pain control with oral medications Bowel regimen: Increase fluid intake and fiber in diet, Laxative PRN Discharge plan: May discharge home later today or tomorrow if condition remains stable Plan discussed with: Patient, Spouse DOC LEWIS CNM Sep 06, 2024 08:02
[2024-09-06 11:00] VITALS: BP 108/64; PULSE 88; RESP 18; TEMP 98.7; O2SAT 97
[2024-09-06] MEDS ORDERED: IBUPROFEN 600 MG TAB PO PRN (14:15)
[2024-09-06] MEDS ORDERED: ACETAMINOPHEN 325 MG TAB PO PRN (14:15)
[2024-09-06 15:00] VITALS: BP 110/56; PULSE 94; RESP 16; TEMP 98; O2SAT 98
--- NOTE | 2024-09-06 16:24 | DVHDS2 ---
Physician Discharge Progress N Final Diagnosis: GDM Induction of labor, delivered Operations or Procedures: Operations or Procedures Induction of labor, Commentary: Commentary Normal labor and delivery Normal course Condition on Discharge: Stable Disposition: Home Discharge Instructions: Diet: Regular Activity: Light activity Follow Up/Referral: Follow up in 2 weeks Medications: N/A Follow Up Care: Discharge Statement: "Patient was advised to return to the ER or call 911 if any headaches, dizziness, shortness of breath, chest pain, abdominal pain, bleeding, fevers, or worsening of medical condition. Patient was counseled about treatment plan, medications, possible side effects, patientverbalized understanding. All questions were answered to the best of my ability. This discharge took greater then 30 minutes in planning, reviewing documentation, counseling the patient, and discussing with other team members." ROSY GONZALEZ DO Sep 06, 2024 16:24
[2024-09-06 19:00] VITALS: BP 120/61; PULSE 97; RESP 18; TEMP 98.1; O2SAT 97
[2024-09-06] MEDS ORDERED: IBU600T PO ×2 (20:33→20:34)
[2024-09-07 08:07] LABS: RPR Non Reactive (Non Reactive)
== END 2024-09-06 21:04 | disposition home or self-care (01) | DRG 560 ==
LOC: LDRP 06:20
PROVIDERS: ADMIT Obstetrics & Gynecology; ATTEND Obstetrics & Gynecology
PROC: 10E0XZZ Delivery of Products of Conception, External Approach (ICD-10-PCS; principal; 2024-09-05)
PROC: 0HQ9XZZ Repair Perineum Skin, External Approach (ICD-10-PCS; 2024-09-05)
PROC: 3E0R3BZ Introduction of Anesthetic Agent into Spinal Canal, Percutaneous Approach (ICD-10-PCS; 2024-09-05)
PROC: 00HU33Z Insertion of Infusion Device into Spinal Canal, Percutaneous Approach (ICD-10-PCS; 2024-09-05)
DX: O99.214 Obesity complicating childbirth (principal); Z37.0 Single live birth; O24.425 Gestational diabetes mellitus in childbirth, controlled by oral hypoglycemic drugs; E66.01 Morbid (severe) obesity due to excess calories; O70.0 First degree perineal laceration during delivery; Z3A.38 38 weeks gestation of pregnancy
CPT/HCPCS: 36415; 59025; 59409; 62282; 80053; 80307; 81001; 81002; 82948; 82962; 85025; 85610; 85730; 86592; 86780; 86803; 86850; 86900; 86901; 94760; 96360; 96361; 96365; 96366; G0378; J2590